=== PATIENT | female | born 1945 | race Caucasian/White ===

== ENCOUNTER → 2020-01-25 15:18 | Outpatient (CLI) | payer MEDICARE, OTHER, SELFPAY ==
--- NOTE | ~2020-01-25 | US_ITS ---
EXAMINATION: US thyroid DATE: 01/25/2020 15:40 INDICATION: Nontoxic single thyroid nodule TECHNIQUE: Multiple ultrasound images of the thyroid were obtained. COMPARISON: None. FINDINGS: The right thyroid lobe measures 3.3 x 0.8 x 0.9 cm. The left thyroid lobe measures 2.4 x 0.8 x 0.8 c m. Wider than tall 5 x 4 x 3 mm solid hypoechoic nodule with well-defined margins and without echogen ic foci in the right thyroid (TI-RADS 4, moderately suspicious , FNA if >=1.5 cm, annual followup is >1 cm). No other thyroid nodules identified. Heterogeneous echogenicity with coarsened echotexture th roughout the thyroid. IMPRESSION: 1. Likely benign 5 mm right thyroid nodule which does not meet criteria for biopsy or follow-up. [facility] mm[facility] clinical followup with repeat imaging if there are changes on physical exam. 2. Small thyroid with heterogeneous echogenicity and coarsened echotexture which could represent sequ angeles of chronic thyroiditis. Reviewed, dictated and finalized at location A. IMPRESSION: 1. Likely benign 5 mm right thyroid nodule which does not meet criteria for bio psy or follow-up. Recommend clinical followup with repeat imaging if there are changes on physical exam. 2. Small thyroid with heterogeneous echogenicity and coarsened echotexture whic h could represent sequela of chronic thyroiditis.
== END ==
PROVIDERS: Visit Provider Nurse Practitioner
DX: E04.1 Nontoxic single thyroid nodule (principal)
CPT/HCPCS: 76536

== ENCOUNTER 2022-06-21 19:53 | Emergency (ER) | payer MEDICARE, SELFPAY ==
--- NOTE | ~2022-06-21 | XR_ITS ---
XR humerus RT 06/21/2022 20:12 INDICATION: Right humeral pain and swelling PROCEDURE: 2 views right humerus COMPARISON: No prior studies for comparison. FINDINGS: Fracture, dislocation or subluxation is not identified. The soft tissues appear within norm al limits. No foreign bodies are identified. IMPRESSION: 1: NO ACUTE BONE OR JOINT ABNORMALITY IDENTIFIED. Reviewed, dictated and finalized at location A.
--- NOTE | 2022-06-21 19:59 | ED.GENADULT ---
HPI - General Adult General Chief complaint: Extremity Injury, Upper Stated complaint: Bruise Rt Arm Time Seen by Provider: 06/21/22 19:59 Source: patient Mode of arrival: ambulatory Limitations: no limitations History of Present Illness HPI narrative: 77-year-old female patient presents to the [facility] with complaints of bruising to the right arm. Patient states she noticed the bruise about 10:00 PM on Wednesday night. Patient states it was a smaller bruise. Patient states today it started swelling and now her skin feels kind of tight. Patient denies being on any blood thinners. Denies any trauma or injury to the arm that she is aware of. Patient did take some Advil yesterday. Patient denies any significant pain but states that it is just a little sore to the touch Related Data Allergies Allergy/AdvReac Type Severity Reaction Status Date / Time No Known Allergies Allergy Mild Verified 06/21/22 19:55 Review of Systems Review of Systems: CONSTITUTIONAL: Denies fever, chills, or sweats. EYES: Denies visual changes, redness, or discharge. ENT: Denies rhinorrhea, congestion, sore throat, or otalgia. CARDIOVASCULAR: Denies chest pain, palpitations, or edema. RESPIRATORY: Denies cough or dyspnea. GASTROINTESTINAL: Denies abdominal pain, nausea, vomiting, or diarrhea. GENITOURINARY: Denies dysuria or hematuria. SKIN: Denies rash or itching. Positive bruising to right upper arm MUSCULOSKELETAL: Denies back pain, joint pain, or myalgia. NEUROLOGIC: Denies headache, numbness, or weakness. PSYCHIATRIC: Denies anxiety or depression. [facility] Past Medical History Medical History (Updated 06/21/22 @ 20:11 by ZARIA Law) H/O thyroid disease Two previous induced terminations of Surgical History Surgical History History of cataract extraction Family History Family History Father Family history of coronary artery disease Social History Social History Smoking status: Never smoker Alcohol intake: never Comments At the time of my signature I agree with nursing past medical history, surgical, social, and family history. There is no relevant family history pertinent to the presenting complaint. Exam Narrative: GENERAL: Well-appearing, well-nourished, and in no acute distress. HEAD: Normocephalic, atraumatic. EYES: PERRLA and EOMI. ENT: Nares clear, no rhinorrhea or epistaxis. Mucous membranes moist. NECK: Supple. No lymphadenopathy CHEST: Clear to auscultation. No respiratory distress. HEART: Regular rate and rhythm. No murmur heard. Normal peripheral pulses. ABDOMEN: Soft, nontender, nondistended, normal active bowel sounds. EXTREMITIES: Normal range of motion. No edema. SKIN: Warm, dry, no rash. Patient has what appears to be purple bruising noted to the right upper arm above the elbow. There is some swelling present. There is no warmth present. No open area or signs of any infection. No red streaking noted. Patient has good range of motion to the right upper extremity. NEURO: No focal deficits. Alert and oriented x3. Course Course Level of Care: Express Care Visit Vital Signs Vital signs: Vital signs reviewed Medical Decision Making [facility] Narrative Medical decision making narrative: Plan of care patient is to obtain an x-ray just to rule out any injuries that could be causing the hematoma. If this looks okay most likely will recommend that patient follow-up with her primary doctor might need an ultrasound to rule out any type of mass that could be found causing the spontaneous hematoma. Differential Diagnosis Differential Diagnosis: Differential diagnosis: Most likely diagnosis is spontaneous hematoma of the right arm. Other differentials include contact dermatitis, poison elvis, poison sumac, psoriasis, eczema, allergic reaction, d
[2022-06-21 20:05] VITALS: BP 120/78; PULSE 98; RESP 20; TEMP 36.8; O2SAT 100
== END 2022-06-21 20:25 | disposition home or self-care (01) ==
PROVIDERS: Emergency Provider Nurse Practitioner Family; PCP Internal Medicine
DX: R23.3 Spontaneous ecchymoses (principal); E03.9 Hypothyroidism, unspecified
CPT/HCPCS: 73060; 99213; G0463

== ENCOUNTER 2022-06-22 10:14 | Outpatient (CLI) | payer MEDICARE, SELFPAY ==
--- NOTE | ~2022-06-22 | US_ITS ---
US soft tissue UE RT 06/22/2022 11:00 Indication: Right arm pain and bruising Procedure: High-resolution ultrasound of the right upper arm Comparison: No prior studies for comparison. Findings: No discrete abnormal fluid collections are identified. There is subcutaneous edema in the a hyun of palpable concern. Impression: 1: Mild diffuse subcutaneous edema in the area of palpable concern/bruising. No discrete abnormal flu id collections. Reviewed, dictated and finalized at location B. Impression: 1: Mild diffuse subcutaneous edema in the area of palpable concern/bruising. No discrete abnormal fluid collections.
== END 2022-06-22 10:15 | disposition home or self-care (01) ==
LOC: ANHIMG 10:20
PROVIDERS: PCP Internal Medicine; Visit Provider Internal Medicine
DX: M62.89 Other specified disorders of muscle (principal)
CPT/HCPCS: 76882

== ENCOUNTER 2024-01-10 11:03 | Outpatient (CLI) | payer MEDICARE, SELFPAY ==
--- NOTE | 2024-01-14 12:25 | WPDHOLTEREM ---
Holter/Event Monitor Holter/Event Monitor Date of procedure: 01/10/24 Holter/Event Procedure: 48 Hr Holter Monitor Indications: Palpitations Conclusion: 1. 48 hour holter monitor on 01/10/24. 2. Underlying rhythm is sinus rhythm. HR range 53-125 bpm; average HR 76 bpm. 3. There are 163 premature supraventricular and 3 supraventricular couplets. No supraventricular tachycardia. 4. There are 769 premature ventricular complexes. No ventricular tachycardia. 5. No sinoatrial or atrioventricular blocks. No significant pauses greater than 2 seconds. 6. No symptoms available for correlation.
== END 2024-01-10 11:04 | disposition home or self-care (01) ==
LOC: ANHCARD 11:04
PROVIDERS: PCP Internal Medicine; Visit Provider Nurse Practitioner
DX: R00.2 Palpitations (principal)
CPT/HCPCS: 93225; 93226

== ENCOUNTER 2025-04-25 07:19 | Outpatient (CLI) | payer MEDICARE, SELFPAY ==
--- NOTE | ~2025-04-25 | US_ITS ---
Abdominal Sonogram: Real-time sonographic imaging of the abdomen was performed. Clinical History: Secondary thrombocytopenia Findings: The liver appears normal with no evidence of mass lesion or bile duct dilatation. Main por silver vein demonstrates normal direction of flow. The spleen is normal in size without evidence of foca l lesion. The gallbladder is well distended, and contains multiple echogenic gallstones. No gallblad ankur wall thickening. The common bile duct measures 3 mm. The visualized pancreas, aorta, and IVC are unremarkable. The right kidney measures 8.7 cm in length and the left kidney measures 11.0 cm. The re is no hydronephrosis or renal calculus. Impression: Cholelithiasis. Reviewed, dictated and finalized at location M. Impression: Cholelithiasis.
--- OUTSIDE RECORDS SUMMARY | 2025-04-25 07:24 | XMS_ITS | Clinical Summary ---
Author Organization [facility] Address [address] [place] [address] Care Team Providers Care Record Keeper Name Role Phone Unavailable Primary Care Provider Unavailabl e Allergies No known active allergies Medications levothyroxine 50 mcg tablet Take 50 mcg by mouth daily in the morning. 02/27/2025 Active Active Problems No known active problems Encounters Date Type Department Care Team Description 04/24/2025 External Device Data [facility]CTION Provider, Abstract 03/29/2025 External Device Data [facility] ABSTRACTION Provider, Abstract 03/28/2025 External Device Data [facility] Provider, Abstract 03/27/2025 External Device Data [facility] ABSTRACTION Provider, Abstract 03/20/2025 External Device Data [facility] ABSTRACTION Provider, Abstract 03/20/2025 External Device Data [facility] ABSTRACTION Provider, Abstract 03/20/2025 External Device Data [facility] ABSTRACTION Provider, Abstract 03/19/2025 3:00 PM CDT Office Visit [facility] Oncology and Hematology - Rai [address] [facility] [address] [place] [address] Ambrose Gill MD Chronic anemia (Primary Dx); Other secondary thrombocytopenia from Last 3 Months Family History Medical History Relation Name Comments No Known Problems Brother No Known Problems Child 1 No Known Problems Child 2 No Known Problems Father No Known Problems Mother No Known Problems Sister 1 No Known Problems Sister 2 No Known Problems Sister 3 No Known Problems Sister 4 No Known Problems Sister 5 Relation Name Status Comments Brother Alive Child 1 Alive Child 2 Alive Father Mother Sister 1 Alive Sister 2 Alive Sister 3 Alive Sister 4 Alive Sister 5 Alive Social History Tobacco Use Types Packs/Day Years Used Date Smoking Tobacco: Never Smokeless Tobacco: Never Tobacco Cessation:Counseling Given: Not Answered Alcohol Use Standard Drinks/Week Comments Yes 0 (1 standard drink = 0.6 oz pur e alcohol) occasional Comments Unknown Sex and Gender Information Value Date Recorded Sex Assigned at Not on file Legal Sex Female 1:59 PM CDT Gender Identity Not on file Sexual Orientation Not on file Last Filed Vital Signs Vital Sign Reading Time Taken Comments Blood Pressure 156/98 03/19/2025 3:11 PM CDT Pt verbally stated that she is nervous Pulse 76 03/19/2025 3:09 PM CDT Temperature 36.5 C (97.7 F) 03/19/2025 3:09 PM CDT Respiratory Rate 15 03/19/2025 3:09 PM CDT Oxygen Saturation 95% 03/19/2025 3:0 9 PM CDT Inhaled Oxygen Concentration - - Weight 55.1 kg (121 lb 6.4 oz) 03/19/2025 3:09 PM CDT Height 157.5 cm (5' 2) 03/19/2025 3:09 PM CDT Body Mass Index 22.2 03/19/2025 3:09 PM CDT Plan of Treatment Upcoming Encounters Date Type Department Care Team (Late st Contact Info) Description 05/02/2025 4:30 PM CDT Telephone Check Up [facility] Oncology and Hematology - Rai [address] [facility] [address] [place] [address] Ambrose Gill MD [address] [place] [address] Health Maintenance Due Date Last Done Comments DTAP/TDAP/TD VACCINES (1 - Tdap) 1966 PNEUMOCOCCAL VACCINE 50+ YEARS (1 of 1 - PCV) 05/14/19 97 ZOSTER VACCINE (1 of 2) 1997 OSTEOPOROSIS SCREENING 2012 RSV VACCINE (60+ or ) (1 - 1-dose 75+ series) 2022 INFLUENZA VACCINE (#1) 2024 Procedures Procedure Name Priority Date/Time Associated Diagnosis Comments PLATELET ANTIBODIES DIRECT Routine 03/20/2025 10:32 AM CDT COMPREHENSIVE METABOLIC PANEL Routine 03/20/2025 10:32 AM CDT CBC WITH DIFFERENTIAL Routine 03/20/2025 10:32 AM CDT TRANSFERRIN RECEPTOR TFR SOLUBLE Routine 03/20/2025 10:32 AM CDT Chronic anemia METHYLMALONIC ACID Routine 03/20/2025 10 :32 AM CDT Chronic anemia VITAMIN B12 AND FOLATE Routine 10:32 AM CDT Chronic anemia IRON, TIBC, AND PERCENT SATURATION Routine 03/20/2025 10:32 AM CDT Chronic anemia FERRITIN Routine 03/20/2025 10:32 AM CDT Chronic anemia from Last 3 Months Results * VITAMIN B12 AND FOLATE (03/20/2025 10:32 AM CDT) VITAMIN B12 282 200 - 1100 pg/mL [facility] Comment: Please Note: Although the reference range for vitamin B12 is 200-1100 pg/mL, it has been reported that between 5 and 10% of patients with values between 200 and 400 pg/mL may experience neuropsychiatric and hematologic abnormalities due to occult B12 deficiency; less than 1% of patients with values above 400 pg/mL will have symptoms. FOLATE, SERUM 14.6 ng/mL [facility] Comment: Reference Range Low: <3.4 Borderline: 3.4-5.4 Normal: >5.4 FASTING:NO FASTING: NO Test Performed at: [facility] [address] [place] [address] Tana Orantes MD Blood 03/20/2025 10:3 2 AM CDT 03/20/2025 10:46 AM CDT us Ambrose Gill MD CHEMISTRY ORDERABLES Final Resu lt [facility] [phone] [facility] [address] [place] [address] * TRANSFERRIN RECEPTOR TFR SOLUBLE (03/20/2025 10:32 AM CDT) TRANSFERRIN RECEPTOR TFR SOLUBLE 0.95 0.76 - 1.76 mg/L [facility], Comment: FASTING:NO FASTING: NO Test Performed at: [facility], [address] [place] [address] Jaycee Taylor MD,PhD,DAMION Blood 03/20/2025 10:3 2 AM CDT 03/20/2025 10:46 AM CDT us Ambrose Gill MD CHEMISTRY ORDERABLES Final Resu lt [facility] [phone] [facility], [address] [place] [address] * METHYLMALONIC ACID (03/20/2025 10:32 AM CDT) METHYLMALONIC ACID 237 69 - 390 nmol/L [facility] Comment: Serum methylmalonic acid (MMA) levels are used to diagnose and monitor several rare inborn errors of metabolism, including methylmalonic aciduria. The enzymatic conversion of MMA to succinic acid requires vitamin B12 (adenosyl-cobalamin) as a cofactor. Serum MMA levels are also used for assessing functional vitamin B12 deficiency. Vitamin B12 is essential for neurodevelopment, particularly early in . Undiagnosed maternal vitamin B12 deficiency may be associated with adverse / outcomes, such as neural tube defects and intrauterine growth restriction. [facility] utilized Multi-Modal Decomposition (MMD) analysis to establish first and second trimester- specific MMA reference intervals in , as given below: MMA, First trimester (<13 wks gestation): 58-167 nmol/L MMA, Second trimester (13-23 wks gestation): 63-241 nmol/L This test was developed and its analytical performance characteristics have been determined by [facility]. It has not been cleared or approved by the FDA. This assay has been validated pursuant to the CLIA regulations and is used for clinical purposes. FASTING:NO FASTING: NO Test Performed at: [facility] [address] [place] Jackson Monroe M.D.,PhD Blood 03/20/2025 10:3 2 AM CDT 03/20/2025 10:46 AM CDT Ambrose Gill MD CHEMISTRY ORDERABLES Final Resu lt Performing Organization Address [facility] de Phone Number [facility] [phone] [facility] [address] [place], [place] * IRON, TIBC, AND PERCENT SATURATION (03/20/2025 10:32 AM CDT) Pathologist [facility] IRON 142 45 - 160 mcg/dL [facility] TIBC 345 250 - 450 mcg/dL (calc) [facility] IRON % SATURATION 41 16 - 45 % (calc) [facility] Comment: Test Performed at: [facility] [address] [place] [address] Tana Orantes MD Blood 03/20/2025 10:3 2 AM CDT 03/20/2025 10:46 AM CDT Ambrose Gill MD CHEMISTRY ORDERABLES Final Resu lt Performing Organization Address [facility] de Phone Number [facility] [phone] [facility] [address] [place] [address] * CBC WITH DIFFERENTIAL (03/20/2025 10:32 AM CDT) WBC 6.9 3.8 - 10.8 Thousand/u L [facility] RBC 4.75 3.80 - 5.10 Million/uL [facility] HEMOGLOBIN 14.3 11.7 - 15.5 g/dL [facility] HEMATOCRIT 43.8 35.0 - 45.0 % [facility] MCV 92.2 80.0 - 100.0 fL [facility] MCH 30.1 27.0 - 33.0 pg [facility] MCHC 32.6 32.0 - 36.0 g/dL [facility] Comment: For adults, a slight decrease in the calculated MCHC value (in the range of 30 to 32 g/dL) is most likely not clinically significant; however, it should be interpreted with caution in correlation with other red cell parameters and the patient's clinical condition. RDW 13.1 11.0 - 15.0 % [facility] NEUTROPHIL ABSOLUTE 4,940 1,500 - 7,800 cells/uL [facility] LYMPHOCYTE ABSOLUTE 1,325 850 - 3,900 cells/uL [facility] MONOCYTE ABSOLUTE 455 200 - 950 cells/uL [facility] EOSINOPHIL ABSOLUTE 117 15 - 500 cells/uL [facility] BASOPHILS ABSOLUTE 62 0 - 200 cells/uL [facility] NEUTROPHIL 71.6 % [facility] LYMPHOCYTES 19.2 % [facility] MONOCYTE 6.6 % [facility] EOSINOPHILS 1.7 % [facility] BASOPHILS 0.9 % [facility] PLATELETS TNP Thousand/u L [facility] Comment: TEST(S) NOT PERFORMED: PLATELET COUNT Unable to report due to significant platelet clumping. Platelet estimate appears normal. FASTING:NO FASTING: NO Test Performed at: [facility] [address] [place] [address] Tana Orantes MD 03/20/2025 10:3 2 AM CDT 03/20/2025 10:46 AM CDT us Ambrose Gill MD HEMATOLOGY ORDERABLES Final Res ult [facility] [phone] [facility] [address] [place] [address] * PLATELET ANTIBODIES DIRECT (03/20/2025 10:32 AM CDT) Pathologist [facility] PLATELET ANTIBODIES DIRECT, IGG NEGATIVE NEGATIVE [facility], Comment: This assay detects IgG antibodies bound to platelets in vivo. Platelet Associated IgG (PAIgG) is commonly found in idiopathic (autoimmune) thrombocytopenia purpura, but may also be present in thrombocytopenia associated with SLE, carcinoma, AIDS, lymphoma, Hodgkin's disease and Lucila's thyroiditis. This test was developed and its analytical performance characteristics have been determined by [facility]. It has not been cleared or approved by the FDA. This assay has been validated pursuant to the CLIA regulations and is used for clinical purposes. FASTING:NO FASTING: NO Test Performed at: [facility], [address] [place] [address] Jaycee Taylor MD,PhD,DAMION 03/20/2025 10:3 2 AM CDT 03/20/2025 10:46 AM CDT Ambrose Gill MD HEMATOLOGY ORDERABLES Final Res ult [facility] [phone] [facility], [address] [place] [phone] * FERRITIN (03/20/2025 10:32 AM CDT) Pathologist [facility] FERRITIN 29 16 - 288 ng/mL [facility] Comment: Test Performed at: [facility] [address] [address] Tana Orantes MD Blood 03/20/2025 10:3 2 AM CDT 03/20/2025 10:46 AM CDT Ambrose Gill MD CHEMISTRY ORDERABLES Final Resu lt [facility] [phone] [facility] [address] [address] * COMPREHENSIVE METABOLIC PANEL (03/20/2025 10:32 AM CDT) GLUCOSE 91 65 - 139 mg/dL [facility] Comment: Non-fasting reference interval BUN 16 7 - 25 mg/dL [facility] CREATININE 0.95 0.60 - 1.00 mg/dL [facility] GFR 62 > OR = 60 mL/min/1. 73m2 [facility] BUN/CREAT RATIO SEE NOTE: 6 - (calc) [facility] Comment: Not Reported: BUN and Creatinine are within reference range. SODIUM 138 135 - 146 mmol/L [facility] POTASSIUM 4.2 3.5 - 5.3 mmol/L [facility] CHLORIDE 102 98 - 110 mmol/L [facility] CO2 26 20 - 32 mmol/L [facility] CALCIUM 9.4 8.6 - 10.4 mg/dL [facility] TOTAL PROTEIN 6.8 6.1 - 8.1 g/dL [facility] ALBUMIN 4.1 3.6 - 5.1 g/dL [facility] GLOBULIN 2.7 1.9 - 3.7 g/dL (calc) [facility] ALBUMIN/GLOBULIN RATIO 1.5 1.0 - 2.5 (calc) [facility] BILIRUBIN TOTAL 0.5 0.2 - 1.2 mg/dL [facility] ALKALINE PHOSPHATASE 84 37 - 153 U/L [facility] AST 15 10 - 35 U/L [facility] ALT 10 6 - 29 U/L [facility] Comment: Test Performed at: [facility] [address] [place] [address] Tana Orantes MD 03/20/2025 10:3 2 AM CDT 03/20/2025 10:46 AM CDT Ambrose Gill MD CHEMISTRY ORDERABLES Final Resu lt [facility] [phone] [facility] [address] [phone] from Last 3 Months Insurance MEDICARE PART A AND B [employer] [id number] [address] [id number]
--- OUTSIDE RECORDS SUMMARY | 2025-04-25 07:24 | XMS_ITS | Encounter Summary ---
Author Organization [facility] Address [address] [place] [address] Care Team Providers Care [facility] Chocolate Dipper Name Role Phone Unavailable Primary Care Provider Unavailabl e Encounter Details Date Type Department Care Team (Late st Contact Info) Description 04/24/2025 External Device Data [facility] Provider, Abstract NO ADDRESS ON FILE Social History Tobacco Use Types Packs/Day Years Used Date Smoking Tobacco: Never Smokeless Tobacco: Never Alcohol Use Standard Drinks/Week Comments Yes 0 (1 standard drink = 0.6 oz pur e alcohol) occasional Comments Unknown Sex and Gender Information Value Date Recorded Sex Assigned at Not on file Legal Sex Female 1:59 PM CDT Gender Identity Not on file Sexual Orientation Not on file documented as of this encounter Plan of Treatment Upcoming Encounters Date Type Department Care Team (Late st Contact Info) Description 05/02/2025 4:30 PM CDT Telephone Check Up [facility] Oncology and Hematology - Rai [address] [facility] [address] [place] [address] Ambrose Gill MD [address] [place] [address] documented as of this encounter Visit Diagnoses Not on filedocumented in this encounter
== END 2025-04-25 07:20 | disposition home or self-care (01) ==
PROVIDERS: PCP Nurse Practitioner; Visit Provider Internal Medicine Hematology & Oncology
DX: D69.59 Other secondary thrombocytopenia (principal); K80.20 Calculus of gallbladder without cholecystitis without obstruction
CPT/HCPCS: 76700

== ENCOUNTER 2025-10-29 09:22 | Outpatient (CLI) | payer MEDICARE, SELFPAY ==
--- NOTE | ~2025-10-29 | XR_ITS ---
XR hip LT min 2V 10/29/2025 09:11 Indication: Left hip pain Procedure: 2 views left hip Comparison: No prior studies for comparison. Findings: Severe osteoarthritis of the left hip. No fracture, subluxation or dislocation. No soft tissue abnormality. No foreign bodies. Impression: 1: Severe osteoarthritis of the left hip. Reviewed, dictated and finalized at location O. 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
--- NOTE | ~2025-10-29 | XR_ITS ---
XR foot LT min 3V 10/29/2025 09:12 Indication: Localized swelling. Procedure: 4 views left foot Comparison: No prior studies for comparison. Findings: There is osteoarthritis of the first MTP joint. Lisfranc joint intact. Mild polyarticular osteoarthritis. There is a surgical screw in the second metatarsal head. There are degenerative calcaneal enthesophytes no significant soft tissue abnormality. No foreign bodies. Osteopenia. Impression: 1: Moderate polyarticular osteoarthritis. 2: Osteopenia. Reviewed, dictated and finalized at location O. KEN SEXER Impression: 1: Moderate polyarticular osteoarthritis. 2: Osteopenia.
--- NOTE | ~2025-10-29 | XR_ITS ---
XR knee LT 3V 10/29/2025 09:11 Indication: Left knee pain Procedure: 3 views left knee Comparison: No prior studies for comparison. Findings: There is sclerosis of the medial femoral condyle, suspicious for avascular necrosis with possible underlying osteochondral defect. Mild osteoarthritis of the left knee. No acute fracture or traumatic malalignment. No joint effusion. Impression: 1: Sclerosis medial femoral condyle, suspicious for avascular necrosis. Consider correlation with MRI. Reviewed, dictated and finalized at location O. TER Impression: 1: Sclerosis medial femoral condyle, suspicious for avascular necrosis. Conside r correlation with MRI.
--- OUTSIDE RECORDS SUMMARY | 2025-10-29 09:21 | XMS_ITS | Clinical Summary ---
Author Organization [facility] Address [address] [facility] [place] [address] Care Team Providers Care Print Operator Name Role Phone Guanako Marcos DO Primary Care Provider [phone] Allergies No known active allergies Medications levothyroxine 50 mcg tablet Take 50 mcg by mouth daily in the morning. 02/27/2025 Active Active Problems No known active problems Encounters Date Type Department Care Team Description 08/28/2025 External Device Data STL ABSTRACTION Provider, Abstract 08/15/2025 2:15 PM CDT Office Visit [facility] Oncology and Hematology - [place] [address] [facility] [place] [facility] [address] [place] [address] Ambrose Gill MD Chronic anemia (Primary Dx) from Last 3 Months Family History Medical [...] Sign Reading Time Taken Comments Blood Pressure 160/90 08/15/2025 2:07 PM CDT Pulse 78 08/15/2025 2:06 PM CDT Temperature 36.4 C (97.6 F) 08/15/2025 2:06 PM CDT Respiratory Rate 15 08/15/2025 2:06 PM CDT Oxygen Saturation 92% 08/15/2025 2:06 PM CDT Inhaled Oxygen Concentration - - Weight 52.9 kg (116 lb 9.6 oz) 08/15/2025 2:06 P M CDT Height 157.5 cm (5' 2) 03/19/2025 3:09 PM CDT Body Mass Index 21.33 03/19/2025 3:09 PM CDT Plan of Treatment Upcoming Encounters Date Type Department Care Team (Late st Contact Info) Description 02/22/2026 9:15 AM CDT Office Visit [facility] Oncology and Hematology - [place] [address] [facility] [place] [facility] [address] [place] [address] Ambrose Gill MD [address] [facility] [place] [employer] [address] [place] [address] Health Maintenance Due Date Last Done Comments DTAP/TDAP/TD VACCINES (1 - Tdap) 1966 PNEUMOCOCCAL VACCINE 50+ YEARS (1 of 1 - PCV) 05/14/19 97 ZOSTER VACCINE (1 of 2) 1997 OSTEOPOROSIS SCREENING 2012 RSV VACCINE (60+ or ) (1 - 1-dose 75+ series) 2022 INFLUENZA VACCINE (#1) 2025 Procedures Procedure Name Priority Date/Time Associated Diagnosis Comments CBC WITHOUT DIFFERENTIAL Routine 08/09/2025 7:26 AM CDT VITAMIN B12 AND FOLATE Routine 08/09/2025 7:26 AM CDT Chronic anemia from Last 3 Months Results * VITAMIN B12 AND FOLATE (08/09/2025 7:26 AM CDT) VITAMIN B12 483 200 - 1100 pg/mL [facility] FOLATE, SERUM 16.2 ng/mL [facility] Comment: Reference Range Low: <3.4 Borderline: 3.4-5.4 Normal: >5.4 Test Performed at: [facility] [address] [place] [address] Tana Orantes MD Blood 08/09/2025 7:26 AM CDT 08/09/2025 7:27 AM CDT Ambrose Gill MD CHEMISTRY ORDERABLES Final Resu lt [facility] [phone] [facility] [employer] [address] * CBC WITHOUT DIFFERENTIAL (08/09/2025 7:26 AM CDT) WBC 5.7 3.8 - 10.8 Thousand/u L [facility] RBC 4.79 3.80 - 5.10 Million/uL [facility] HEMOGLOBIN 14.6 11.7 - 15.5 g/dL [facility] HEMATOCRIT 44.9 35.0 - 45.0 % [facility] MCV 93.7 80.0 - 100.0 fL [facility] MCH 30.5 27.0 - 33.0 pg [facility] MCHC 32.5 32.0 - 36.0 g/dL [facility] Comment: For adults, a slight decrease in the calculated MCHC value (in the range of 30 to 32 g/dL) is most likely not clinically significant; however, it should be interpreted with caution in correlation with other red cell parameters and the patient's clinical condition. RDW 13.0 11.0 - 15.0 % [facility] PLATELETS 144 140 - 400 Thousand/u L [facility] MPV 9.9 7.5 - 12.5 fL [facility] Comment: Test Performed at: [employer] [address] Tana Orantes MD 08/09/2025 7:26 AM CDT 08/09/2025 7:27 AM CDT us Ambrose M Jairo MD HEMATOLOGY ORDERABLES Final Res ult [facility] [phone] [facility] [id number] [address] [phone] from Last 3 Months Insurance MEDICARE PART A AND B [id number] Care Teams Print Operator Relationship Specialty Start Date End Date Guanako Marcos DO [address] [facility] [address] [place] [address] PCP - General Internal Medicine 08/15/25
--- OUTSIDE RECORDS SUMMARY | 2025-10-29 09:21 | XMS_ITS | Clinical Summary ---
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 Role Phone Unavailable Primary Care Provider Unavailabl e Social History Tobacco Use Types Packs/Day Years Used Date Smoking Tobacco: Never Assessed Comments Unknown Sex and Gender Information Value Date Recorded Sex Assigned at Not on file Legal Sex Female 7:55 PM CDT Gender Identity Not on file Sexual Orientation Not on file Plan of Treatment Health Maintenance Due Date Last Done Comments Hepatitis C 1963 DTaP, Tdap and Td Vaccines ( 1 - Tdap) 1966 Pneumococcal Vaccine: 50+ Ye ars (1 of 1 - PCV) 1997 Zoster Vaccines (1 of 2) 1997 Dexa Scan (General) 2012 RSV Immunization or 60+ Years (1 - 1-dose 75+ series) 2022 COVID-19 Vaccine ( - 2024-2 6 season) 2025 Influenza Adult (#1) 2025 Hepatitis A Vaccines Aged Out No long er eligible based on patient's age to complete this topic Meningococcal B Vaccine Aged Out No l onger eligible based on patient's age to complete this topic Meningococcal Vaccine Aged Out No cortez rachel eligible based on patient's age to complete this topic RSV Immunizations Under 20 Months Aged Out No longer eligible based on patient's age to complete this topic
--- OUTSIDE RECORDS SUMMARY | 2025-10-29 10:24 | XMS_ITS | Clinical Summary ---
Author Organization [facility] Address [address] [facility] [address] Care Team Providers Care Generator Rebuilder Name Role Phone Guanako Marcos DO Primary Care Provider [phone] Allergies No known active allergies Medications levothyroxine 50 mcg tablet Take 50 mcg by mouth daily in the morning. 02/27/2025 Active Active Problems No known active problems Encounters Date Type Department Care Team Description 08/28/2025 External Device Data STL ABSTRACTION Provider, Abstract 08/15/2025 2:15 PM CDT Office Visit [facility] Oncology and Hematology - [place] [address] [facility] [address] [place] [address] Ambrose Gill MD Chronic anemia [...] Description 02/22/2026 9:15 AM CDT Office Visit [facility] Oncology and Hematology - [place] [address] [facility] [address] [place] [address] Ambrose Gill MD [address] [facility] [employer] [address] [place] [address] Health Maintenance Due Date Last [...] VITAMIN B12 483 200 - 1100 pg/mL [facility] FOLATE, SERUM 16.2 ng/mL [facility] Comment: Reference Range Low: <3.4 Borderline: 3.4-5.4 Normal: >5.4 Test Performed at: [facility] [address] [place] [address] Tana Orantes MD Blood 08/09/2025 7:26 AM CDT 08/09/2025 7:27 AM CDT Ambrose Gill MD CHEMISTRY ORDERABLES Final Resu lt [facility] [phone] [facility] [employer] [address] * CBC WITHOUT DIFFERENTIAL (08/09/2025 7:26 AM [...] [facility] Comment: Test Performed at: [employer] [address] Tana Orantes MD 08/09/2025 7:26 AM CDT 08/09/2025 7:27 AM CDT us Ambrose M Jairo MD HEMATOLOGY ORDERABLES Final Res ult [facility] [phone] [facility] [id number] [address] [phone] from Last 3 Months Insurance MEDICARE PART A AND B [employer] [id number] Care Teams Generator Rebuilder Relationship Specialty Start Date End Date Guanako Marcos DO [address] [facility] [address] [place] [phone] PCP - General Internal Medicine 08/15/25
--- OUTSIDE RECORDS SUMMARY | 2025-10-29 10:24 | XMS_ITS | Clinical Summary ---
Author Organization 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
== END 2025-10-29 09:23 | disposition home or self-care (01) ==
PROVIDERS: PCP Nurse Practitioner; Visit Provider Nurse Practitioner
DX: M25.562 Pain in left knee (principal); M19.072 Primary osteoarthritis, left ankle and foot; M85.872 Other specified disorders of bone density and structure, left ankle and foot; M16.12 Unilateral primary osteoarthritis, left hip
CPT/HCPCS: 73502; 73562; 73630